=== PATIENT | female | born 1990 | race American Indian/Alaskan Native ===

== ENCOUNTER 2017-12-30 13:31 | Emergency (ER) | payer MEDICAID, OTHER ==
--- NOTE | 2017-12-30 14:34 | OBHP ---
Datetime: 12/30/2017 14:29 IP Adm Impression: No Active Labor IP Admit Plan: Discharge home Pelvic Type - PN: Adequate Extremities - PN: Normal Abdomen - PN: Normal Back - PN: Normal Breast - PN: Normal Lungs - PN: Normal Heart - PN: Normal Thyroid - PN: Normal Neurologic - PN: Normal HEENT - PN: Normal General - PN: Normal FHR - Baseline A Provider: 150 Comments, ACOG Physical Exam: Pt was seen and examined. Pt is not in labor. discharge pt home. EGA AdmitDate IP: 36.6 Vital Signs Provider: Reviewed IP Chief Complaint: Uterine contractions NICHD Variability Prov Fetus A: Moderate 6-25bpm NICHD Accel Fetus A IP Provider: [id number] FHR Category Provider Fetus A: Category I NICHD Decel Fetus A IP Provider: None Dilatation, Provider: closed Effacement, Provider: 0 Station, Provider: -3 Genitourinary Exam: Normal DTRs - PN: Normal
[2017-12-30 15:13] VITALS: BMI 44.4
== END 2017-12-30 15:13 | disposition home or self-care (01) ==
LOC: C.EROB 13:31
DX: O47.03 False labor before 37 completed weeks of gestation, third trimester (principal); Z3A.36 36 weeks gestation of pregnancy